=== PATIENT | female | born 1945 | race Native Hawaiian/Other Pacific Islander ===

== ENCOUNTER → 2022-01-06 15:51 | Outpatient (CLI) | payer MEDICARE, OTHER, SELFPAY ==
--- NOTE | 2022-01-06 | DI.MRI.S_ITS ---
PROCEDURE: MR HEAD/BRAIN WO/W CON INDICATIONS: Headache TECHNIQUE: Noncontrast axial T1 spin echo, axial T2 fast spin echo, sagittal and axial FLAIR, coronal T2 fast spin echo, axial gradient echo, axial diffusion and ADC through the brain. After the administration of contrast, axial and coronal T1 spin echo with fat saturation through the brain. COMPARISON: None. FINDINGS: Image quality: Excellent. CSF spaces: Basal cisterns are patent. No extra-axial fluid collections. Ventricles are normal in size and shape. Brain: No midline shift. No intracranial bleeds or masses. No abnormal intracranial enhancement. There is cerebral volume loss for age. There is [id number] periventricular white matter chronic small vessel ischemic change. The brainstem appears normal. Diffusion-weighted images demonstrate no acute ischemic insults. No chronic ischemic insults. Normal intravascular flow voids are present. Skull and face: Calvarial marrow is normal in signal. Orbits appear normal. Sinuses: The right maxillary sinus is hypoplastic and opacified. There is minimal bilateral ethmoid mucosal thickening. Left maxillary sinus and sphenoid sinus and mastoids are clear. IMPRESSION: 1. Age-related volume loss and [id number] small vessel ischemic change. 2. No evidence acute stroke, hemorrhage, or mass. 3. Hypoplastic right maxillary sinus, completely opacified. Mild chronic ethmoid disease. Dictated by: Girma Blevins M.D. on 01/06/2022 at 16:37 Approved by: Girma Blevins M.D. on 01/06/2022 at 16:41
== END ==
PROVIDERS: PCP Family Medicine; Referring Provider Family Medicine; Visit Provider Family Medicine
DX: J32.8 Other chronic sinusitis (principal); R51.9 Headache, unspecified
CPT/HCPCS: 70553; A9579

== ENCOUNTER → 2022-04-05 10:20 | Outpatient (CLI) | payer MEDICARE, OTHER, SELFPAY ==
--- NOTE | 2022-04-05 | DI.CT.S_ITS ---
PROCEDURE: CT ANGIO HEAD AND NECK INDICATIONS: [place] headaches TECHNIQUE: Pre-contrast 4.5 mm thick sections acquired from the foramen magnum to the vertex. After the administration of intravenous contrast, 1 mm thick sections acquired from the aortic arch through the [place]. Post-contrast 4.5 mm thick sections then re-acquired from the foramen magnum to the vertex. For radiation dose reduction, the following was used: automated exposure control, adjustment of mA and/or kV according to patient size. COMPARISON: None. FINDINGS: Image quality: Excellent. BRAIN: CSF spaces: Ventricles are normal in size and shape. Basal cisterns are patent. No extra-axial fluid collections. Brain: No midline shift. No intracranial bleeds or masses. Vega-white matter interface appears intact. Atrophy and multifocal chronic ischemic change Skull and face: Calvarium and facial bones appear intact, without suspicious lesions. Orbits appear normal. Bilateral intraocular lens replacements noted. Sinuses: Right maxillary atelectatic sinus with wall thickening and large nasal antral window reflects chronic sinus disease. HEAD CT ANGIOGRAPHY: Anterior circulation: Atherosclerotic calcification in the cavernous segments of both ICA results in mild stenosis in the left.. The flow within the paired anterior cerebral arteries is normal and symmetric. The flow within the middle cerebral arteries is normal and symmetric. The anterior communicating artery is seen. No aneurysms are seen. Posterior circulation: Atherosclerotic calcification in the left intradural vertebral artery results in moderate focal stenosis without occlusion. Right vertebral artery unremarkable. Normal basilar artery.. Flow within the posterior cerebral arteries is normal and symmetric. No aneurysms are seen. NECK CT ANGIOGRAPHY: Carotid system: The great vessels demonstrate a conventional anatomy as they arise from the aortic arch. The origins of the common carotid arteries appear patent. Calcified and noncalcified atherosclerotic plaque in the distal left CCA results in 30 percent stenosis The bifurcation regions are both widely patent. The internal carotid arteries demonstrate normal calibers and courses. Posterior circulation: The origins of the vertebral arteries both appear widely patent. The more superior extracranial portions of both vertebral arteries also demonstrate normal courses and calibers. They join to form a normal appearing basilar artery. Soft tissues: Visualized neck soft tissues demonstrate no suspicious abnormalities. Bones: No suspicious bony lesions. Visualized cervical spine appears normally aligned. IMPRESSION: 1. 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 2. No evidence of large vessel occlusion, aneurysm or vascular malformation. 3. Chronic right maxillary sinus disease Any quantitative measurements of stenosis were performed using NASCET criteria. Approved by: Bipin Tenorio M.D. on 04/05/2022 at 10:58
== END ==
PROVIDERS: PCP Family Medicine; Referring Provider Psychiatry & Neurology Neurology; Visit Provider Psychiatry & Neurology Neurology
DX: G44.53 Primary thunderclap headache (principal); I65.22 Occlusion and stenosis of left carotid artery; J32.0 Chronic maxillary sinusitis
CPT/HCPCS: 70496; 70498; Q9967

== ENCOUNTER → 2024-05-01 11:26 | Outpatient (CLI) | payer MEDICARE, OTHER, SELFPAY ==
--- NOTE | 2024-05-01 11:29 | DI.RAD.S_ITS ---
PROCEDURE: XR FOOT RT MIN 3V INDICATIONS: Right foot pain TECHNIQUE: 3 views of the foot were acquired. COMPARISON: None. FINDINGS: Bones: No fractures or dislocations. No suspicious bony lesions. Mild hallux valgus with bone callus formation of the metatarsal head. Soft tissues: No tibiotalar joint effusion. Achilles tendon appears normal. IMPRESSION: No acute bony abnormality. Dictated by: Mateo Moreno M.D. on 05/02/2024 at 8:33 Approved by: Mateo Moreno M.D. on 05/02/2024 at 8:34
== END ==
PROVIDERS: PCP Family Medicine; Referring Provider Nurse Practitioner Family; Visit Provider Nurse Practitioner Family
DX: M79.671 Pain in right foot (principal)
CPT/HCPCS: 73630

== ENCOUNTER → 2025-09-08 10:39 | Outpatient (CLI) | payer MEDICARE, OTHER, SELFPAY ==
--- NOTE | 2025-09-08 10:41 | DI.MRI.S_ITS ---
PROCEDURE: MR SHOULDER LT WO CON
== END ==
PROVIDERS: PCP Family Medicine; Referring Provider Family Medicine; Visit Provider Family Medicine
DX: M75.112 Incomplete rotator cuff tear or rupture of left shoulder, not specified as traumatic (principal); M25.312 Other instability, left shoulder; M19.012 Primary osteoarthritis, left shoulder; M25.412 Effusion, left shoulder
CPT/HCPCS: 73221